=== PATIENT | male | born 2000 | race African-American/Black ===

== ENCOUNTER 2021-05-13 23:02 | Emergency (ER) | payer OTHER ==
[~2021-05-13] VITALS: Ht 182.9 cm; Wt 135.0 kg
[2021-05-13 23:02] VITALS: BP 151/92
[2021-05-13] MEDS ORDERED: ORPH-16 PO (23:25)
--- NOTE | 2021-05-13 23:25 | PHYS DOC ---
Past History Past Medical History: No Pertinent History Past Surgical History: No Surgical History Smoking: Non-smoker Alcohol Use: None Drug Use: None General Adult EDM: Chief Complaint: BACK PAIN OR INJURY HPI: HPI: 20-year-old male presents with report of left upper thoracic pain that started upon waking this morning. Patient reports he had problems getting up out of bed secondary to pain. Patient reports going for a "ruck run "yesterday as he is in the . Patient reports some pain with palpation of area causing him to feel short of breath secondary to the pain. Denies any leg swelling or calf tenderness. Denies cough. Denies fever or chills. Denies rash. Denies traum a. Review of Systems: Review of Systems: Constitutional: Denies fever or chills Eyes: Denies redness or eye pain HENT: Denies nasal congestion or sore throat Respiratory: Denies cough Cardiovascular: Denies chest pain or palpitations GI: Denies abdominal pain, nausea, or vomiting : Denies dysuria or hematuria Musculoskeletal: Reports left back pain; denies joint pain Integument: Denies rash or skin lesions Neurologic: Denies headache, focal weakness or sensory changes Complete systems were reviewed and found to be within normal limits, except as documented in this note. Current Medications: Current Meds: Current Medications Medications (Trade) Dose Ordered Sig/[facility] Start Time Stop Time Status Last Admin Dose Admin Ibuprofen (Motrin) 600 mg 1X ONCE 05/13/21 23:30 05/13/21 23:31 UNV Orphenadrine Citrate (Norflex) 60 mg 1X ONCE 05/13/21 23:30 05/13/21 23:31 UNV Allergies: Allergies: Allergies Coded Allergies Type Severity Reaction Last Updated Verified No Known Drug Allergies 05/13/21 No Physical Exam: PE: Constitutional: Well developed, well nourished, no acute distress, non-toxic appearance HENT: Normocephalic, atraumatic Eyes: Conjunctiva normal, no discharge Neck: Normal range of motion, supple Lungs & Thorax: No respiratory distress, equal chest rise and fall Skin: Warm, dry, no erythema, no rash Back: No midline tenderness, no CVA tenderness, left mid thoracic paraspinal tenderness Extremities: No tenderness, ROM intact, no edema Neurologic: Alert and oriented X 3, no focal deficits noted Psychologic: Affect normal, judgment normal EKG: EKG: [] Radiology/Procedures: Radiology/Procedures: [] Heart Score: C/O Chest Pain: N/A Course & Med Decision Making: Course & Med Decision Making Pertinent Labs and Imaging studies reviewed. (See chart for details) Patient presents with musculoskeletal back pain. Denies trauma. Afebrile. Pain addressed. Risk of radiation outweighing benefit therefore imaging not ordered. Patient stable for discharge with outpatient follow-up with PCP. Discussed findings and plan with patient, who acknowledges understanding and agreement. Leo Disclaimer: eLo Disclaimer: This electronic medical record was generated, in whole or in part, using a voice recognition dictation system. Departure Departure: Impression: Primary Impression: Acute thoracic back pain Qualified Codes: M54.6 - Pain in thoracic spine Disposition: HOME / SELF CARE / HOMELESS Condition: STABLE Referrals: PCP,NO (PCP) Patient Instructions: Thoracic Strain, [id number] Additional Instructions: ICE area 20 min on then leave off next 20 min. Repeat several times daily as needed for next few days. Use over the counter Tylenol and/or Ibuprofen for pain or discomfort. Use over the counter Ibuprofen and/or Tylenol for pain or discomfort. Scripts Orphenadrine Citrate (ORPHENADRINE CITRATE) 100 Mg Tablet.er 1 TAB PO BID PRN for MUSCLE PAIN, #14 TAB 0 Refills Prov: LULA PAN DO 05/13/21 LULA PAN DO May 13, 2021 23:25
[2021-05-13] MEDS ORDERED: ORPHENADRINE CITRATE 60 MG/2 ML VIAL. IM ONE (23:30)
[2021-05-13] MEDS ORDERED: IBUPROFEN 600 MG TABLET. PO ONE (23:30)
== END 2021-05-13 23:50 | disposition home or self-care (01) ==
LOC: ER 23:02
DX: M54.6 Pain in thoracic spine (principal); R06.02 Shortness of breath
CPT/HCPCS: 96372; 99283; J2360